=== PATIENT | female | born 2000 | race African-American/Black ===

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

== ENCOUNTER 2020-01-01 14:52 | Emergency (ER) | payer OTHER, SELFPAY ==
[2020-01-01 15:20] VITALS: BP 122/65; PULSE 95; RESP 16; TEMP 36.9; O2SAT 100
--- NOTE | 2020-01-01 15:38 | ED.ABDPAIN ---
HPI - Abdominal Pain General Chief Complaint: Abdominal Pain Stated Complaint: abd pain History of Present Illness HPI narrative: This is a 19 year old female that comes in complaining of nausea and frequency of urination and some loose stools per patient she has not had fever . Patient states she was on macrobid the last time she came for this. Patient states the same thing has been going on for the past couple of days. Last bowel movement was yesterday. Related Data Allergies Allergy/AdvReac Type Severity Reaction Status Date / Time No Known Allergies Allergy Verified 01/01/20 15:18 Review of Systems Review of Systems: Narrative: CONSTITUTIONAL: Denies fever, chills, or sweats. EYES: Denies visual changes, redness, or discharge. ENT: Denies rhinorrhea, congestion, sore throat, or otalgia. CARDIOVASCULAR:Denies chest pain, palpitations, or edema. RESPIRATORY: Denies cough or dyspnea. GASTROINTESTINAL: positive abdominal pain, nausea, vomiting, or diarrhea. GENITOURINARY: Denies dysuria or hematuria. SKIN:[Denies rash or itching. MUSCULOSKELETAL:Denies back pain, joint pain, or myalgia. NEUROLOGIC: Denies headache, numbness, or weakness. PSYCHIATRIC:Denies anxiety or depression PMFSH Past Medical History Medical History (Updated 01/01/20 @ 15:40 by Good Trujillo NP) Anxiety Depression Surgical History Surgical History (Updated 08/18/19 @ 09:06 by Millie Villalta CMA) History of tonsillectomy [place] teeth removed Family History Family History (Updated 04/19/17 @ 12:20 by DOCTOR UNKNOWN) Grandparent Family history of hypercholesterolemia Social History Social History Smoking status: Never smoker Second hand tobacco smoke exposure: No Alcohol intake: never Gender identity (if verbalized by the patient): Female Comments At time as signature, I have reviewed and agree with nursing past medical, social, surgical and family history. Please see nursing chart for further information. There is no relevant family history pertinent to the presenting complaint. Exam Narrative: Exam Narrative: GENERAL:Well-appearing, well-nourished, and in no acute distress. HEAD:Normocephalic, atraumatic. EYES: PERRLA and EOMI. ENT: Nares clear, no rhinorrhea or epistaxis. Mucous membranes moist. NECK: Supple. CHEST: Clear to auscultation. No respiratory distress. HEART: Regular rate and rhythm. No murmur heard. Normal peripheral pulses. ABDOMEN: Soft, right upper quad tender, nondistended, normal active bowel sounds. EXTREMITIES: Normal range of motion. No edema. SKIN: Warm, dry, no rash. NEURO: No focal deficits. Alert and oriented x3. Course Vital Signs Vital signs: Vital Signs Temperature 98.5 F 01/01/20 15:20 Pulse Rate 95 01/01/20 15:20 Respiratory Rate 16 01/01/20 15:20 Blood Pressure 122/65 01/01/20 15:20 Pulse Oximetry 100 01/01/20 15:20 Temperature 98.5 F 01/01/20 15:20 Pulse Rate 95 01/01/20 15:20 Respiratory Rate 16 01/01/20 15:20 Blood Pressure 122/65 01/01/20 15:20 Pulse Oximetry 100 01/01/20 15:20 MDM - Abdominal Pain Differential Diagnosis Differential diagnosis: Likely abdominal pain, acute appendicitis, calculus of kidney, constipation, diverticulitis, gastroenteritis and small bowel obstruction Lab Data Labs: UCG Bedside Result Negative Reference Range: Negative Urine Glucose Negative Reference Range: Negative Urine Bilirubin Negative Reference Range: Negative Urine Ketone Negative Reference Range: Negative Urine Specific [place] 1.010 Reference Range:1.001-1.035 Urine Blood Negative Reference Range: Negative * * Urine pH 7.0 Reference Range: 5.0-9.0 Urine Protein Negative Reference Range: Negati
== END 2020-01-01 15:47 | disposition home or self-care (01) ==
PROVIDERS: Emergency Provider Nurse Practitioner Family
DX: K52.9 Noninfective gastroenteritis and colitis, unspecified (principal)
CPT/HCPCS: 81003; 81025; 99213; G0463

== ENCOUNTER 2020-03-15 16:16 | Emergency (ER) | payer OTHER, SELFPAY ==
[2020-03-15 16:34] VITALS: BP 118/66; PULSE 85; RESP 16; TEMP 36.7; O2SAT 99
--- NOTE | 2020-03-15 17:00 | ED.ABDPAIN ---
HPI - Abdominal Pain General Chief Complaint: Abdominal Pain Stated Complaint: Abd pain/Nausea/ Vomiting Time Seen by Provider: 03/15/20 17:00 Source: patient and RN notes reviewed Mode of arrival: ambulatory Limitations: no limitations History of Present Illness HPI narrative: 19-year-old female presents with concern for 2 to 3-day history of diarrhea. Reports 3-5 diarrhea stools a day ranging from watery to soft. Reports nausea, denies vomiting. Reports past history of diarrhea alternating with constipation. She denies fever, malaise, flank pain, dysuria, urine frequency, urinary urgency. Has not taken any medications for her symptoms. Reports she has missed work today MD elicited complaint: other (Diarrhea) Related Data Allergies Allergy/AdvReac Type Severity Reaction Status Date / Time No Known Allergies Allergy Verified 01/01/20 15:18 Review of Systems Review of Systems: Narrative: CONSTITUTIONAL: Denies malaise, chills, sweats, or fever. ENT: Denies rhinorrhea, congestion, sinus pain, otalgia or sore throat. CARDIOVASCULAR: Denies chest pain, palpitations, or edema. RESPIRATORY: Denies cough or dyspnea. GASTROINTESTINAL: Reports abdominal pain, nausea, diarrhea. Denies vomiting, bloody, or mucous stools. GENITOURINARY: Denies dysuria, frequency, urgency, flank pain, hematuria, abnormal vaginal discharge. SKIN: Denies rash or itching. MUSCULOSKELETAL: Denies myalgia. NEUROLOGIC: Reports occasional headache. PSYCHIATRIC: Denies anxiety or depression. All systems reviewed & are unremarkable except as noted in HPI and below PMFSH Past Medical History Medical History (Updated 03/15/20 @ 17:10 by Rica Moncada NP) Anxiety Depression Surgical History Surgical History (Updated 08/18/19 @ 09:06 by Millie Villalta CMA) History of tonsillectomy [place] teeth removed Family History Family History (Updated 04/19/17 @ 12:20 by DOCTOR UNKNOWN) Grandparent Family history of hypercholesterolemia Social History Social History Smoking status: Never smoker Second hand tobacco smoke exposure: No Alcohol intake: never Gender identity (if verbalized by the patient): Female Comments At time of signature, agree with nursing past medical, surgical, social and family history. There is no relevant family history pertinent to the presenting complaint Exam Narrative: Exam Narrative: GENERAL: Well-appearing, well-nourished, and in no acute distress. HEAD: Normocephalic, atraumatic. EYES: PERRLA, conjunctivae clear, and EOMI. ENT: Nares clear, turbinates pink, no rhinorrhea or epistaxis. Mucous membranes moist. Oropharynx without edema, erythema, or lesions. Tonsils not enlarged and without exudate. NECK: Supple. No lymphadenopathy CHEST: Speaks in full sentences. No respiratory distress. HEART: Regular rate and rhythm. ABDOMEN: Soft, flat, nondistended. No guarding, rebound tenderness, or rigid. No pulsatilla masses. Bowel sounds present in all four quadrants. No organomegaly. Negative Renee?s sign. No periumbilical tenderness. No Supra public tenderness or distension. Good femoral pulses bilaterally. No hernia noted. No scars or surface trauma. SKIN: Warm, dry, no rash. NEURO: Alert and oriented x3. PSYCH: Normal mood and affect Course Course Emergency Course: Patient is aware of diagnosis, understands and agrees to treatment plan. Anticipatory guidance given. Patient agrees to follow-up as directed and is aware of reasons to seek care at the emergency department. Portions of this record may have been created with voice recognition software Vital Signs Vital signs: Vital Signs Temperature 98.1 F 03/15/20 16:34 Pulse Rate 85 03/15/20 16:34 Respiratory Rate 16 03/15/20 16:34 Blood Pressure 118/66 03/15/20 16:34 Pulse Oximetry 99 03/15/20 16:34 Temperature 98.1 F 03/15/20 16:34 Pulse Rate 85 03/15/20 16:34 Respiratory Rate 16 03/15/20 16:34 Blood Pressure 118/66
== END 2020-03-15 17:19 | disposition home or self-care (01) ==
PROVIDERS: Emergency Provider Nurse Practitioner
DX: R19.7 Diarrhea, unspecified (principal)
CPT/HCPCS: 99213; G0463

== ENCOUNTER 2020-05-22 10:56 | Emergency (ER) | payer OTHER, SELFPAY ==
--- NOTE | ~2020-05-22 | US_ITS ---
EXAMINATION: US OB <= 14 weeks fetus DATE: 05/22/2020 12:48 INDICATION: Pelvic pain during first trimester TECHNIQUE: Real-time pelvic transabdominal and transvaginal ultrasound was performed. COMPARISON: None. FINDINGS: The uterus measures 9.3 x 7.2 x 9.5 cm. There is an intrauterine gestational sac. A yolk s ac is identified. heart motion is identified measuring 151 beats per minute (bpm) by M-mode Dop pler. The crown rump length measures 4.5 cm , which correlates with an estimated gestational ag e of 11 weeks and 2 day(s) (+/-) 5 day(s). The right ovary measures 2.4 x 2.1 x 2.1 cm. The left ovary measures 2.0 x 1.4 x 2.1 cm. There is nor mal vascular flow in the ovaries. There is no free fluid in the pelvis. IMPRESSION: 1. Live intrauterine with an estimated gestational age of 11 weeks and 2 day(s) (+/-) 5 day (s) and an estimated delivery date of 12/09/2020. Reviewed, dictated and finalized at location A. IMPRESSION: 1. Live intrauterine with an estimated gestational age of 11 weeks an d 2 day(s) (+/-) 5 day(s) and an estimated delivery date of 12/09/2020.
[2020-05-22 11:10] VITALS: BP 140/71; PULSE 91; RESP 17; TEMP 36.6; O2SAT 100
--- NOTE | 2020-05-22 11:43 | ED.ABDPAIN ---
HPI - Abdominal Pain General Chief Complaint: Abdominal Pain Stated Complaint: 11 weeks /abdominal pain Time Seen by Provider: 05/22/20 11:43 Source: patient Mode of arrival: ambulatory Limitations: no limitations History of Present Illness HPI narrative: Patient is a G1, P0 who is approximately 11 weeks who presents for evaluation of right lower quadrant abdominal pain/upper pelvic pain over the past 72 hours. Patient reports pain is mild in nature, she states she initially attributed the right lower abdominal pain to picking up a heavy dog on . Patient states the pain seemed to have improved since that time but was very worried given this is her first . Patient states she did have a verified intrauterine by Dr. Salazar's office. 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 She denies fever, chills, nausea or vomiting. She denies hematuria or dysuria. She denies vaginal bleeding, discharge or loss of fluids. Related Data Allergies Allergy/AdvReac Type Severity Reaction Status Date / Time No Known Allergies Allergy Verified 05/22/20 11:12 Review of Systems Review of Systems: Narrative: CONSTITUTIONAL: Denies fever, chills ENT: Denies rhinorrhea, congestion, sore throat, or otalgia. CARDIOVASCULAR: Denies chest pain, palpitations, or edema. RESPIRATORY: Denies cough or dyspnea. GASTROINTESTINAL: Reports right lower quadrant abdominal pain, denies nausea, vomiting or diarrhea GENITOURINARY: Denies dysuria or hematuria. SKIN: Denies rash or itching. MUSCULOSKELETAL: Denies back pain, joint pain, or myalgia. NEUROLOGIC: Denies headache, numbness, or weakness. [facility] Past Medical History Medical History Anxiety Depression Surgical History Surgical History History of tonsillectomy [place] teeth removed Family History Family History (Updated 04/19/17 @ 12:20 by DOCTOR UNKNOWN) Grandparent Family history of hypercholesterolemia Social History Social History Smoking status: Never smoker Second hand tobacco smoke exposure: No Alcohol intake: never Gender identity (if verbalized by the patient): Female Exam Narrative: Exam Narrative: GENERAL: Awake, alert, conversant HEAD: Normocephalic, atraumatic. EYES: PERRLA and EOMI. ENT: Nares clear, no rhinorrhea or epistaxis. Mucous membranes moist. NECK: Supple. CHEST: No respiratory distress, breathing even and non labored HEART: Regular rate, sinus rhythm ABDOMEN:Non distended, focal right lower quadrant tenderness, nonrigid, no guarding EXTREMITIES: Normal range of motion. No edema. SKIN: Warm, dry, no rash. NEURO:No focal deficits. Alert and oriented x3 Course Vital Signs Vital signs: Vital Signs Temperature 36.6 C 05/22/20 11:10 Pulse Rate 91 05/22/20 11:10 Respiratory Rate 17 05/22/20 11:10 Blood Pressure 140/71 05/22/20 11:10 Pulse Oximetry 100 05/22/20 11:10 Temperature 36.6 C 05/22/20 11:10 Pulse Rate 91 05/22/20 11:10 Respiratory Rate 17 05/22/20 11:10 Blood Pressure 140/71 05/22/20 11:10 Pulse Oximetry 100 05/22/20 11:10 MDM - Abdominal Pain MDM Narrative Medical decision making narrative: Patient presented for evaluation of right lower quadrant abdominal pain in the setting of first trimester . Patient states that she was lifting a dog and then experienced some pain on that side which has lessened over time. Patient was worried because she still continues to have mild pain. No fever, nausea or vomiting. No sign of infectious etiology based on vital signs. Considered appendicitis based on location of the pain, but she lacks other clinical symptoms to be suggestive of this, furthermore I would think that her pain would be increasing over time if she were to have appendicitis. Laboratory results
[2020-05-22 12:26] LABS: Basophils Percent Auto 0.3 % (0.2-1.2); Eosinophils Absolute Auto 0.1 K/mm3 (0-0.3); Hemoglobin 14.8 g/dL (12.0-15.0); Immature Granulocyte Absolute 0.07 K/mm3 (0.00-0.031); Immature Granulocyte Percent A 0.6 % (0-0.5); Lymphocytes Absolute Auto 2.12 K/mm3 (0.9-3.2); Lymphocytes Percent Auto 18.5 % (18.3-44.2); Mean Corpuscular HGB Conc 35.2 g/dl (32-36); Mean Corpuscular Hemoglobin 30.8 pg (26-34); Mean Corpuscular Volume 87.5 fl (80-100); Mean Platelet Volume 11.4 fl (7.4-10.4); Monocytes Absolute Auto 0.5 K/mm3 (0.1-0.6); Monocytes Percent Auto 4.7 % (2.6-8.5); Neutrophils Absolute Auto 8.6 K/mm3 (1.3-6.7); Neutrophils Percent Auto 74.9 % (45.5-73.1); Platelet Count Result 179 k/mm3 (150-375); Red Cell Distribution Width 11.7 % (11.5-14.5); White Blood Count 11.4 K/mm3 (4.5-10.0)
[2020-05-22 12:28] LABS: Add Urine Microscopic? NO; Appearance Urine Clear (Clear); Bilirubin Urine Negative (Negative); Blood Urine Negative (Negative); Color Urine Yellow (Yellow); Glucose Urine UA Negative (Negative); Ketones Urine Negative (Negative); Leukocyte Esterase Ur Negative LEU/UL (Negative); Nitrate Urine Negative (Negative); Protein Urine Negative (Negative); Specific Grav Ur 1.014 (1.001-1.035); Urobilinogen Urine Negative mg/dL (<2.0)
[2020-05-22 12:38] LABS: Alanine Aminotransferase 9 U/L (4-35); Albumin Level 3.9 g/dL (3.5-5.1); Alkaline Phosphatase 53 U/L (38-126); Anion Gap 8 mmol/L (8-16); Aspartate Amino Transferase 19 U/L (14-36); Bilirubin,Total 1.2 mg/dL (0.2-1.3); Blood Urea Nitrogen 4 mg/dL (7-17); Carbon Dioxide 22 mmol/L (22-30); Chloride 103 mmol/L (98-107); Estimated CRCL calculation 137 ml/min; Estimated Glomerular Filt Rate > 60; Glucose 71 mg/dL (65-105); Lipase 33 U/L (23-300); Potassium 4.2 mmol/L (3.4-5.0); Sodium 133 mmol/L (137-145)
[2020-05-22] MEDS: SODIUM CHLORIDE 0.9% IV 1,000 ML 999 ML IV CONT (13:00)
[2020-05-22 14:05] VITALS: BP 121/75; PULSE 85; RESP 18; O2SAT 100
== END 2020-05-22 14:06 | disposition home or self-care (01) ==
PROVIDERS: Emergency Provider Emergency Medicine
DX: O26.891 Other specified pregnancy related conditions, first trimester (principal); R10.31 Right lower quadrant pain; Z3A.11 11 weeks gestation of pregnancy
CPT/HCPCS: 36415; 76801; 80053; 81003; 83690; 85025; 96365; 99284; J0131; J7030

== ENCOUNTER 2020-07-13 10:49 | Emergency (ER) | payer OTHER, SELFPAY ==
[2020-07-13 10:59] VITALS: BP 109/66; PULSE 81; RESP 18; TEMP 37; O2SAT 100
--- NOTE | 2020-07-13 11:11 | ED.FEMALEGU ---
HPI - Female Genitourinary General Chief complaint: Urogenital-Female Stated complaint: possible uti Source: patient Mode of arrival: ambulatory Limitations: no limitations History of Present Illness HPI Narrative: Patient is a 20-year-old female who presents complaining of urinary frequency and dysuria x2 days. Patient is 19 weeks gestation, with an estimated due date of 12/07/2019 per patient. She reports confirmed intrauterine by Dr. Salazar's office, OBGYN. She denies fever, chills, nausea or vomiting. She denies hematuria, vaginal bleeding, discharge or loss of fluids. Related Data Home Medications Medication Instructions Recorded Confirmed No Home Medications 07/13/20 07/13/20 Allergies Allergy/AdvReac Type Severity Reaction Status Date / Time No Known Allergies Allergy Verified 07/13/20 11:07 Review of Systems Review of Systems: Narrative: CONSTITUTIONAL: Denies fever, chills, or sweats. EYES: Denies visual changes, redness, or discharge. ENT: Denies rhinorrhea, congestion, sore throat, or otalgia. CARDIOVASCULAR: Denies chest pain, palpitations, or edema. RESPIRATORY: Denies cough or dyspnea. GASTROINTESTINAL: Denies abdominal pain, nausea, vomiting, or diarrhea. GENITOURINARY: Denies dysuria or hematuria. Reports urinary frequency and dysuria. SKIN: Denies rash or itching. MUSCULOSKELETAL: Denies back pain, joint pain, or myalgia. NEUROLOGIC: Denies headache, numbness, dizziness, or weakness. PSYCHIATRIC: Denies anxiety or depression. PMFSH Past Medical History Medical History (Updated 07/13/20 @ 11:31 by MELISSA Parish) Anxiety Depression Surgical History Surgical History History of tonsillectomy [place] teeth removed Family History Family History Grandparent Family history of hypercholesterolemia Social History Social History Smoking status: Never smoker Second hand tobacco smoke exposure: No Alcohol intake: never Gender identity (if verbalized by the patient): Female Exam Narrative: Exam Narrative: GENERAL: Well-appearing, well-nourished, and in no acute distress. HEAD: Normocephalic, atraumatic. EYES: No redness or drainage. ENT: Mucous membranes pink and moist. CHEST: No respiratory distress. HEART: Regular rate and rhythm. GI: Nontender without rebound, or guarding. Bowel sounds normal in all quadrants. : heart tones in 160's EXTREMITIES: Normal range of motion. SKIN: Warm, dry, no rash. NEURO: No focal deficits. Alert and oriented x3. Gait steady. PSYCH: Normal affect. No signs of depression or anxiety. Course Vital Signs Vital signs: Vital Signs Temperature 37.0 C 07/13/20 10:59 Pulse Rate 81 07/13/20 10:59 Respiratory Rate 18 07/13/20 10:59 Blood Pressure 109/66 07/13/20 10:59 Pulse Oximetry 100 07/13/20 10:59 Temperature 37.0 C 07/13/20 10:59 Pulse Rate 81 07/13/20 10:59 Respiratory Rate 18 07/13/20 10:59 Blood Pressure 109/66 07/13/20 10:59 Pulse Oximetry 100 07/13/20 10:59 Reviewed MDM - Female Genitourinary MDM Narrative Medical decision making narrative: Patient urine analysis shows no signs of urinary tract infection. Discussed with patient the need for further evaluation in the emergency department, patient declined. Patient reports she will follow-up with her ACQUISITION LEAD today for further instructions. Patient denies vaginal bleeding, discharge or loss of fluids. heart tones in the 160s. Patient aware of recommendation for emergency follow-up and evaluation. Patient is stable for discharge at this time. Differential Diagnosis Differential diagnosis: Likely other (, urinary tract infection) Lab Data Labs: Urine Glucose Negative Reference
--- NOTE | 2020-07-13 11:18 | PC.NURSE ---
FHR 162; Provider notified
== END 2020-07-13 11:35 | disposition home or self-care (01) ==
PROVIDERS: Emergency Provider Nurse Practitioner
DX: O36.8320 Maternal care for abnormalities of the fetal heart rate or rhythm, second trimester, not applicable or unspecified (principal); Z3A.19 19 weeks gestation of pregnancy
CPT/HCPCS: 81003; 99213; G0463

== ENCOUNTER 2020-11-16 16:20 | Outpatient (CLI) | payer OTHER, SELFPAY ==
[2020-11-16 16:46] VITALS: BP 138/88; PULSE 81
[2020-11-16 16:49] LABS: Basophils Percent Auto 0.2 % (0.2-1.2); Eosinophils Absolute Auto 0.1 K/mm3 (0-0.3); Eosinophils Percent Auto 0.6 % (0-4.4); Hematocrit 40.1 % (37.0-47.0); Hemoglobin 13.5 g/dL (12.0-15.0); Immature Granulocyte Absolute 0.05 K/mm3 (0.00-0.031); Immature Granulocyte Percent A 0.5 % (0-0.5); Lymphocytes Absolute Auto 2.67 K/mm3 (0.9-3.2); Lymphocytes Percent Auto 24.8 % (18.3-44.2); Mean Corpuscular HGB Conc 33.7 g/dl (32-36); Mean Corpuscular Hemoglobin 29.7 pg (26-34); Mean Corpuscular Volume 88.3 fl (80-100); Mean Platelet Volume 12.8 fl (7.4-10.4); Monocytes Absolute Auto 0.8 K/mm3 (0.1-0.6); Neutrophils Absolute Auto 7.2 K/mm3 (1.3-6.7); Neutrophils Percent Auto 66.9 % (45.5-73.1); Platelet Count Result 150 k/mm3 (150-375); Red Blood Count 4.54 M/mm3 (4.2-5.4); White Blood Count 10.8 K/mm3 (4.5-10.0)
[2020-11-16 16:54] LABS: Add Urine Microscopic? YES; Amorphous Sediment Urine Few; Appearance Urine Cloudy (Clear); Bacteria Urine Trace /hpf; Bilirubin Urine Negative (Negative); Blood Urine Negative (Negative); Color Urine Yellow (Yellow); Glucose Urine UA Negative (Negative); Ketones Urine Negative (Negative); Leukocyte Esterase Ur 1+ LEU/UL (NEGATIVE); Mucus Urine Rare /lpf; Nitrate Urine Negative (Negative); Protein Urine Negative (Negative); RBC Urine 0-2 /hpf (0-2); Specific Grav Ur 1.009 (1.001-1.035); Squamous Epithelial Cell Urine Many /hpf (Few); Urobilinogen Urine Negative mg/dL (<2.0)
[2020-11-16 17:00] LABS: Alanine Aminotransferase 12 U/L (4-35); Albumin Level 3.4 g/dL (3.5-5.1); Alkaline Phosphatase 246 U/L (38-126); Anion Gap 7 mmol/L (8-16); Aspartate Amino Transferase 25 U/L (14-36); Bilirubin,Total 0.9 mg/dL (0.2-1.3); Blood Urea Nitrogen 5 mg/dL (7-17); Calcium 8.4 mg/dL (8.4-10.2); Carbon Dioxide 19 mmol/L (22-30); Chloride 111 mmol/L (98-107); Estimated Glomerular Filt Rate > 60; Glucose 66 mg/dL (65-105); Potassium 3.7 mmol/L (3.4-5.0); Sodium 137 mmol/L (137-145); Uric Acid 5.8 mg/dL (2.5-7.5)
[2020-11-16 17:01] VITALS: BP 135/83; PULSE 91
[2020-11-16 17:04] LABS: Creatinine Urine 49.5 mg/dL; Total Protein Urine Random 19 mg/dL; Ur Ttl Prot Creatinine Ratio 0.38 mg/mg (0-0.20)
[2020-11-16 17:16] VITALS: BP 121/63; PULSE 88
[2020-11-16 17:31] VITALS: BP 121/69; PULSE 88
--- NOTE | 2020-11-16 17:42 | PC.NURSE ---
1731- Spoke with Mike Gutierrez CNM, labs and BPs reviewed. Orders to discharge to home with 24 dodie urine and follow up in the office on Saturday.
== END 2020-11-16 17:42 | disposition home or self-care (01) ==
LOC: ANHOBOP 16:24 → ANHOBPP 16:44
PROVIDERS: Advanced Practice Midwife; Visit Provider Obstetrics & Gynecology
DX: O13.9 Gestational [pregnancy-induced] hypertension without significant proteinuria, unspecified trimester (principal); Z3A.00 Weeks of gestation of pregnancy not specified
CPT/HCPCS: 36415; 59025; 80053; 81001; 82570; 84156; 84550; 85025; 87086; 99199

== ENCOUNTER 2020-11-17 19:40 | Outpatient (NON) | payer OTHER, SELFPAY ==
[2020-11-17 19:51] VITALS: BMI 29.5
[2020-11-17 20:05] LABS: Collection Time Urine 24 HOURS
[2020-11-17 20:12] LABS: Total Volume 24 Hour Urine 3400 ml
[2020-11-17 20:26] LABS: Specific Gravity Ur 1.015
[2020-11-17 20:30] LABS: Patient Weight 156 Lbs
[2020-11-17 20:39] LABS: Creatinine Clearance Urine 164.4 ml/min (75-125); Creatinine Urine 40.9 mg/dL; Total Protein Urine 24 Hr 476 MG/DAY (28-141); Total Protein Urine Random 14 mg/dL
== END 2020-11-17 19:41 ==
PROVIDERS: Advanced Practice Midwife; Visit Provider Obstetrics & Gynecology
DX: O13.9 Gestational [pregnancy-induced] hypertension without significant proteinuria, unspecified trimester (principal); Z3A.00 Weeks of gestation of pregnancy not specified
CPT/HCPCS: 81050; 82575; 84156

== ENCOUNTER 2020-11-18 17:40 | Inpatient (IN) | payer OTHER, SELFPAY ==
[2020-11-18] VITALS (7 sets, daily range): BP systolic 115–150; BP diastolic 63–92; PULSE 89–101; TEMP 37–37.2; BMI 27.7
[2020-11-18 18:16] LABS: Basophils Percent Auto 0.1 % (0.2-1.2); Eosinophils Percent Auto 0.4 % (0-4.4); Hematocrit 41.8 % (37.0-47.0); Hemoglobin 14.3 g/dL (12.0-15.0); Immature Granulocyte Absolute 0.05 K/mm3 (0.00-0.031); Immature Granulocyte Percent A 0.5 % (0-0.5); Lymphocytes Absolute Auto 2.17 K/mm3 (0.9-3.2); Lymphocytes Percent Auto 21.1 % (18.3-44.2); Mean Corpuscular HGB Conc 34.2 g/dl (32-36); Mean Corpuscular Volume 87.6 fl (80-100); Mean Platelet Volume 12.6 fl (7.4-10.4); Monocytes Absolute Auto 0.4 K/mm3 (0.1-0.6); Monocytes Percent Auto 3.5 % (2.6-8.5); Neutrophils Absolute Auto 7.7 K/mm3 (1.3-6.7); Neutrophils Percent Auto 74.4 % (45.5-73.1); Platelet Count Result 167 k/mm3 (150-375); Red Blood Count 4.77 M/mm3 (4.2-5.4); Red Cell Distribution Width 13.8 % (11.5-14.5); White Blood Count 10.3 K/mm3 (4.5-10.0)
[2020-11-18 18:27] LABS: Alanine Aminotransferase 14 U/L (4-35); Albumin Level 3.5 g/dL (3.5-5.1); Alkaline Phosphatase 255 U/L (38-126); Anion Gap 8 mmol/L (8-16); Aspartate Amino Transferase 24 U/L (14-36); Blood Urea Nitrogen 4 mg/dL (7-17); Calcium 8.7 mg/dL (8.4-10.2); Carbon Dioxide 20 mmol/L (22-30); Chloride 109 mmol/L (98-107); Estimated Glomerular Filt Rate > 60; Glucose 118 mg/dL (65-105); Potassium 3.7 mmol/L (3.4-5.0); Sodium 137 mmol/L (137-145); Uric Acid 5.1 mg/dL (2.5-7.5)
[2020-11-18] MEDS: DINOPROSTONE 10 MG VAG INSERT VAGINAL (18:51)
--- NOTE | 2020-11-18 20:02 | WPDOBADMIT ---
Obstetrics - Admit Note Admission Note: record reviewed. No pertinent additions to the history and/or any subsequent changes in the physical findings that are not consistent with the expected course of the were found. Pt admitted for MIL due to mild preeclampsia, SVE , cervadil placed by Trevor MARIE Additions to the history and/or subsequent changes in the physical findings follow. None.
[2020-11-19] VITALS (210 sets, daily range): BP systolic 87–154; BP diastolic 42–132; PULSE 79–146; TEMP 36.8–37.7; O2SAT 97–100
[2020-11-19] MEDS: LACTATED RINGERS 1,000 ML 125 ML IV CONT ×4 (08:34→20:48)
[2020-11-19] MEDS: OXYTOCIN 30 UNITS/NS 500 ML 30 UNITS/500 ML BAG 6 UNITS IV CONT (08:34)
--- NOTE | 2020-11-19 09:42 | PM.OBPNLAB ---
Pain Control Date/time seen: 11/19/20 09:42 VSS Pt feeling contractions Contractions regular FHR category 1 Cervix 1-2/50/-2 AROM small amount of clear odorless fluid
--- NOTE | 2020-11-19 13:39 | WPDANESEPP ---
Anes - Eval Pre Procedure Procedure: Labor Epidural Date/Time: 11/19/20 13:39 Surgeon: Marie Preop Diagnosis: Labor Pain Pre Op Diagnosis: Induction of Labor Patient Data Age: 20 Gender: F Height: 5 ft 3 in Weight: 71 kg Last Vital Signs Temp 37.1 C 11/19/20 13:27 Pulse 113 H 11/19/20 13:38 BP 117/63 11/19/20 13:38 Pulse Ox 97 11/19/20 13:34 Allergies Allergy/AdvReac Type Severity Reaction Status Date / Time No Known Allergies Allergy Verified 07/13/20 11:07 Home Medications Medication Instructions Recorded Confirmed Type PNV cmb#95-ferrous fumarate-FA 1 tablet PO DAILY 11/07/20 11/16/20 History [] Laboratory Tests 11/18/20 11/18/20 11/18/20 18:03 18:03 18:03 WBC 10.3 K/mm3 H K/mm3 (4.5-10.0) RBC 4.77 M/mm3 M/mm3 (4.2-5.4) Hgb 14.3 g/dL g/dL (12.0-15.0) Hct 41.8 % % (37.0-47.0) MCV 87.6 fl fl (80-100) MCH 30.0 pg pg (26-34) MCHC 34.2 g/dl g/dl (32-36) RDW 13.8 % % (11.5-14.5) Plt Count 167 k/mm3 k/mm3 (150-375) MPV 12.6 fl H fl (7.4-10.4) Immature Gran % (Auto) 0.5 % % (0-0.5) Neut % (Auto) 74.4 % H % (45.5-73.1) Lymph % (Auto) 21.1 % % (18.3-44.2) [place] % (Auto) 3.5 % % (2.6-8.5) Eos % (Auto) 0.4 % % (0-4.4) Baso % (Auto) 0.1 % L % (0.2-1.2) Lymph # (Auto) 2.17 K/mm3 K/mm3 (0.9-3.2) [place] # (Auto) 0.4 K/mm3 K/mm3 (0.1-0.6) Eos # (Auto) 0.0 K/mm3 K/mm3 (0-0.3) Baso # (Auto) 0.0 K/mm3 K/mm3 (0.0-0.1) Abs Immat Gran (auto) 0.05 K/mm3 H K/mm3 (0.00-0.031) Absolute Neuts (auto) 7.7 K/mm3 H K/mm3 (1.3-6.7) Absolute Nucleated RBC 0.0 K/mm3 K/mm3 (0.0-0.012) Nucleated RBC % 0.0 % % (0.0-0.2) Sodium Potassium Chloride Carbon Dioxide Anion Gap BUN Creatinine Estim Creat Clear Calc Estimated GFR Glucose Uric Acid Cancelled Calcium Total Bilirubin AST ALT Alkaline Phosphatase Total Protein Albumin RPR Pending Blood Type Antibody Screen 11/18/20 11/18/20 18:03 18:03 WBC RBC Hgb Hct MCV MCH MCHC RDW Plt Count MPV Immature Gran % (Auto) Neut % (Auto) Lymph % (Auto) [place] % (Auto) Eos % (Auto) Baso % (Auto) Lymph # (Auto) [place] # (Auto) Eos # (Auto) Baso # (Auto) Abs Immat Gran (auto) Absolute Neuts (auto) Absolute Nucleated RBC Nucleated RBC % Sodium 137 mmol/L mmol/L (137-145) Potassium 3.7 mmol/L mmol/L (3.4-5.0) Chloride 109 mmol/L H mmol/L (98-107) Carbon Dioxide 20 mmol/L L mmol/L (22-30) Anion Gap 8 mmol/L mmol/L (8-16) BUN 4 mg/dL L mg/dL (7-17) Creatinine 0.60 mg/dL L mg/dL (0.7-1.0) Estim Creat Clear Calc Not Reportable Estimated GFR > 60 (59 - ) Glucose 118 mg/dL H mg/dL (65-105) Uric Acid 5.1 mg/dL mg/dL (2.5-7.5) Calcium 8.7 mg/dL mg/dL (8.4-10.2) Total Bilirubin 1.0 mg/dL mg/dL (0.2-1.3) AST 24 U/L U/L (14-36) ALT 14 U/L U/L (4-35) Alkaline Phosphatase 255 U/L H U/L (38-126) Total Protein 7.0 g/dL g/dL (6.3-8.2) Albumin 3.5 g/dL g/dL (3.5-5.1) RPR Blood Type A Positive Antibody Screen Negative : gestational age (SANDRA 12/05/20, ) Patient hx anesthesia problems: none Family hx anesthesia problems: none PMFSH
[2020-11-19] MEDS: SODIUM CHLORIDE 0.9% IV 300 ML 600 ML I-UTERINE (20:48)
[2020-11-20] VITALS (116 sets, daily range): BP systolic 97–142; BP diastolic 40–93; PULSE 86–165; RESP 16–22; TEMP 36.7–37.8; O2SAT 94–100
[2020-11-20] MEDS: AMPICILLIN 2 GM/NS 100 ML 2 GM/100 ML BAG IVPB (04:15)
[2020-11-20] MEDS: SODIUM CHLORIDE 0.9% IV 300 ML 600 ML I-UTERINE (04:20)
--- NOTE | 2020-11-20 05:27 | PM.IMHP ---
H&P: HPI History of Present Illness Date/Time: 11/20/20 05:27 Chief Complaint: Induction of labor Narrative: Maggie Martinez is a 20 year old female here for induction of labor for mild pre-eclampsia. Review of Systems Review of Systems: All systems reviewed & are unremarkable except as noted in HPI and below PMFSH Past Medical History Medical History Anxiety Depression Surgical History Surgical History History of tonsillectomy [place] teeth removed Family History Family History Grandparent Family history of hypercholesterolemia Social History Social History Smoking status: Never smoker Second hand tobacco smoke exposure: No Alcohol intake: never Substance use: never Gender identity (if verbalized by the patient): Female Sexual Orientation (if Verbalized by the Patient): Straight or Heterosexual Spiritual care concerns: No Meds Home Medications and Allergies Home Medications Medication Instructions Recorded Confirmed Type PNV cmb#95-ferrous fumarate-FA 1 tablet PO DAILY 11/07/20 11/16/20 History [] Allergies Allergy/AdvReac Type Severity Reaction Status Date / Time No Known Allergies Allergy Verified 07/13/20 11:07 Vital Signs Vital Signs - 24 hr 11/19/20 06:00 11/19/20 06:18 11/19/20 07:04 Temperature 98.4 F 98.9 F Pulse Rate 89 Blood Pressure 122/77 Pulse Oximetry 11/19/20 08:30 11/19/20 09:00 11/19/20 09:30 Temperature 98.6 F Pulse Rate 95 92 Blood Pressure 130/81 124/71 Pulse Oximetry 11/19/20 09:31 11/19/20 10:00 11/19/20 10:30 Temperature Pulse Rate 135 H 96 83 Blood Pressure 153/104 H 140/84 150/105 H Pulse Oximetry 11/19/20 11:00 11/19/20 11:15 11/19/20 11:30 Temperature 98.2 F Pulse Rate 103 H 99 Blood Pressure 137/88 134/83 Pulse Oximetry 11/19/20 11:45 11/19/20 12:02 11/19/20 12:15 Temperature Pulse Rate 96 98 90 Blood Pressure 138/79 146/98 H 134/77 Pulse Oximetry 11/19/20 12:30 11/19/20 12:45 11/19/20 13:01 Temperature Pulse Rate 94 92 101 H Blood Pressure 133/77 120/71 149/76 H Pulse Oximetry 11/19/20 13:14 11/19/20 13:19 11/19/20 13:22 Temperature Pulse Rate 104 H Blood Pressure 147/87 H Pulse Oximetry 100 100 11/19/20 13:24 11/19/20 13:26 11/19/20 13:27 Temperature 98.8 F Pulse Rate 109 H 110 H Blood Pressure 149/85 H 154/90 H Pulse Oximetry 100 11/19/20 13:28 11/19/20 13:29 11/19/20 13:30 Temperature Pulse Rate 111 H 117 H Blood Pressure 134/87 138/83 Pulse Oximetry 100 11/19/20 13:32 11/19/20 13:34 11/19/20 13:36 Temperature Pulse Rate 119 H 115 H 134 H Blood Pressure 138/81 110/68 87/42 L Pulse Oximetry 97 11/19/20 13:38 11/19/20 13:39 11/19/20 13:40 Temperature Pulse Rate 113 H 101 H Blood Pressure 117/63 122/61 Pulse Oximetry 100 11/19/20 13:42 11/19/20 13:44 11/19/20 13:46 Temperature Pulse Rate 105 H 99 99 Blood Pressure 123/71 125/72 123/71 Pulse Oximetry 99 11/19/20 13:48 11/19/20 13:49 11/19/20 13:50 Temperature Pulse Rate 104 H 104 H Blood Pressure 125/71 124/71 Pulse Oximetry 99 11/19/20 13:52 11/19/20 13:54 11/19/20 13:59 Temperature Pulse Rate 117 H Blood Pressure 127/75 Pulse Oximetry 100 100 11/19/20 14:00 11/19/20 14:04 11/19/20 14:09 Temperature Pulse Rate 94 Blood Pressure 120/67 Pulse Oximetry 100 100 11/19/20 14:14 11/19/20 14:15 11/19/20 14:19 Temperature Pulse Rate 98 Blood Pressure 123/66 Pulse Oximetry 100 100 11/19/20 14:24 11/19/20 14:29 11/19/20 14:30 Temperature Pulse Rate 100 Blood Pressure 124/71 Pulse Oximetry 100 100 11/19/20 14:34 11/19/20 14:39 11/19/20
[2020-11-20] MEDS: LACTATED RINGERS 1,000 ML 125 ML IV CONT (05:28)
--- NOTE | 2020-11-20 05:31 | WPDHPUPDATE1 ---
History and Physical Update Update Date/Time: 11/20/20 05:31 Failure to progress Inadequate labor NRFHT History and Physical has been reviewed, including an updated exam of the patient. There are NO changes in the patient's condition. Risks, benefits, and alternatives have been discussed and questions answered. Patient agrees to proceed with procedure.
--- NOTE | 2020-11-20 05:32 | PM.OBPNLAB ---
Pain Control Date/time seen: 11/20/20 05:32 Pt comfortable with epidural VSS but is becoming tachycardic Contractions regular but very spaced out. Unable to keep pitocin on. FHR has had periods of decreased variability off and on with occasional decelerations throughout the evening/night but would become reactive. More recently the strip is not reactive with minimal to absent variablity and has not responded to intervention. No decelerations at this time. Notified Dr Salazar. called d/t failure to progres r/t inadequate labor and NRFHT.
--- NOTE | 2020-11-20 05:42 | WPDANESEPPF ---
Anes - Initial Pre Proc Eval Procedure: Operation Date: 11/20/20 05:30 Proposed Procedures p Section - Taylor Salazar MD Date/Time: 11/20/20 05:42 Surgeon: Taylor Salazar MD Pre Op Diagnosis: Induction of Labor Patient Data Age: 20 Gender: F Height: 1.6 m Weight: 71 kg Last Vital Signs Temp 37.3 C 11/20/20 04:25 Pulse 146 H 11/20/20 05:30 BP 136/89 11/20/20 05:30 Pulse Ox 100 11/20/20 05:38 Allergies Allergy/AdvReac Type Severity Reaction Status Date / Time No Known Allergies Allergy Verified 07/13/20 11:07 Home Medications Medication Instructions Recorded Confirmed Type PNV cmb#95-ferrous fumarate-FA 1 tablet PO DAILY 11/07/20 11/16/20 History [] : gestational age (SANDRA 12/05/20, ) Patient hx anesthesia problems: none Family hx anesthesia problems: none PMFSH Past Medical History Medical History Anxiety Depression Surgical History Surgical History History of tonsillectomy [place] teeth removed Family History Family History Grandparent Family history of hypercholesterolemia Social History Social History Smoking status: Never smoker Second hand tobacco smoke exposure: No Alcohol intake: never Substance use: never Gender identity (if verbalized by the patient): Female Sexual Orientation (if Verbalized by the Patient): Straight or Heterosexual Spiritual care concerns: No Anes - Eval Final PreProcedure Day of Procedure 11/20/20 05:42 Heart: regular rate and rhythm Lungs: clear to auscultation and normal air movement Airway: Mallampati scale class 1 Neurological: alert and oriented Last oral intake: >/= 8 hours ASA classification: II Emergent: yes Anesthetic plan: proceed Anesthesia type and monitoring: regional and standard monitoring Informed Consent: The patient's anesthetic plan and its attendant risks and benefits were discussed with the patient/family/POA. Questions were solicited and answers provided to the satisfaction of the patient/family/POA.
[2020-11-20] MEDS: ceFAZolin 2 GM/D5W 50 ML 2 GM/50 ML BAG IVPB (05:56)
--- NOTE | 2020-11-20 06:47 | P.OP_ITS ---
Procedure Note - Detailed Date of procedure: 11/20/20 Pre-op diagnosis: Induction of Labor failure to progress and nonreassuring status Post-op diagnosis: same Procedure performed: low-transverse delivery Description of procedure: The patient was taken the operating room. She was prepped and draped in the dorsal supine position with leftward tilt after induction of spinal anesthetic. When anesthesia was found to be adequate a low- transverse skin incision was made and carried down to the level the fascia with the knife. The fascial incision was made at the midline with a scalpel. The fascial incision was extended laterally with Hudson scissors. The fascia was tented upward superior and inferior with Ekta clamps. The rectus muscles were dissected off bluntly. The rectus muscles at the midline. The preperitoneal fat was dissected bluntly at the superior aspect of the separate the rectus muscles. The peritoneal cavity was entered bluntly in the same area. The peritoneal incision was extended superior and inferior with good visualization of bladder. Bladder blade was inserted. A low-transverse incision was made on the uterus with the scalpel. It was carried down the level of the amniotic cavity with a knife. The amniotic cavity bluntly. The uterine incision was made laterally with blunt traction. The infant was delivered. The cord was clamped and cut. The infant was handed off to waiting pediatric staff. Cord bloods were obtained. The placenta was removed manually. The uterus was exteriorized. Uterus cleared of all clots and debris. Uterus closed in 0 Vicryl in a running locked fashion. An imbricating layer of 0 Vicryl was also placed on the to bolster the closure. The uterus was returned to the abdomen. The gutters were cleared of all clots and debris. The fascia was closed 0 Vicryl in a running fashion. Subcutaneous tissue was irrigated and bleeding areas were cauterized. The skin was closed with subcuticular absorbable aleja. The incision was covered with derma fountain. The patient tolerated the procedure well. She was taken recovery room stable condition. Sponge, lap, needle counts were correct x2. Anesthesia: spinal Surgeon: Taylor Salazar MD Drains: No Packing: No Pathology: none sent Complications: No immediate complications Condition: stable Disposition: floor Findings: Normal maternal anatomy. Average size with normal Apgars.
[2020-11-20] MEDS: KETOROLAC 30 MG/ML VIAL (*BKC) IV PUSH ×2 (07:50→14:42)
--- NOTE | 2020-11-20 08:59 | PC.NURSE ---
PT arrived on unit via stretcher accompanied by significant other and and taken to room 282. PT transferred to bed via maxi air without difficulty. PT oriented to room 282 and surrounding area. PT introductions made and plan of care discussed per post op c section, pain management, bottle feeding, daily care activities. PT received instructions per protocol on a one to one discussion. Fob also a recipient of such instructions and there were no barriers to learning. Welcome packet reviewed and discussed. PT verbalized understanding of such care.
[2020-11-20 09:05] LABS: Rapid Plasma Reagin Non-Reactive (NonReactive)
[2020-11-20] MEDS: SIMETHICONE 80 MG TAB.CHEW PO (14:42)
[2020-11-20] MEDS: DEXTROSE 5%/0.45% SOD CHL 1,000 ML 125 ML IV CONT (14:43)
[2020-11-20] MEDS: HYDROcodone/acetaminophen (*CRX) 5-325 MG TABLET 1 TAB PO ×2 (14:50→21:06)
[2020-11-20] MEDS: IBUPROFEN 600 MG TABLET PO (21:07)
[2020-11-21] VITALS (9 sets, daily range): BP systolic 112–135; BP diastolic 66–88; PULSE 84–96; RESP 18; TEMP 36.6–36.9; O2SAT 98–100
[2020-11-21] MEDS: HYDROcodone/acetaminophen (*CRX) 5-325 MG TABLET 1 TAB PO ×4 (02:11→23:07)
[2020-11-21] MEDS: IBUPROFEN 600 MG TABLET PO ×4 (02:14→23:11)
[2020-11-21 06:56] LABS: Basophils Percent Auto 0.1 % (0.2-1.2); Eosinophils Absolute Auto 0.1 K/mm3 (0-0.3); Eosinophils Percent Auto 0.5 % (0-4.4); Hematocrit 34.8 % (37.0-47.0); Hemoglobin 11.8 g/dL (12.0-15.0); Immature Granulocyte Absolute 0.08 K/mm3 (0.00-0.031); Immature Granulocyte Percent A 0.5 % (0-0.5); Lymphocytes Absolute Auto 1.96 K/mm3 (0.9-3.2); Lymphocytes Percent Auto 13.3 % (18.3-44.2); Mean Corpuscular HGB Conc 33.9 g/dl (32-36); Mean Corpuscular Hemoglobin 30.4 pg (26-34); Mean Corpuscular Volume 89.7 fl (80-100); Mean Platelet Volume 12.4 fl (7.4-10.4); Monocytes Absolute Auto 0.9 K/mm3 (0.1-0.6); Monocytes Percent Auto 6.1 % (2.6-8.5); Neutrophils Absolute Auto 11.7 K/mm3 (1.3-6.7); Neutrophils Percent Auto 79.5 % (45.5-73.1); Platelet Count Result 121 k/mm3 (150-375); Red Blood Count 3.88 M/mm3 (4.2-5.4); Red Cell Distribution Width 14.1 % (11.5-14.5); White Blood Count 14.8 K/mm3 (4.5-10.0)
--- NOTE | 2020-11-21 08:09 | PM.OBPNVD ---
OB - PN: Subj Subjective Date/time seen: 11/21/20 08:09 Patient comments: no complaints, pain well controlled, tolerating diet and flatus present OB - PN: Obj Data Labs CBC & Chem 7: 11/21/20 05:36 11/18/20 18:03 Labs: Laboratory Results - last 24 hr 11/18/20 11/21/20 18:03 05:36 WBC 14.8 H RBC 3.88 L Hgb 11.8 L Hct 34.8 L MCV 89.7 MCH 30.4 MCHC 33.9 RDW 14.1 Plt Count 121 L MPV 12.4 H Immature Gran % (Auto) 0.5 Neut % (Auto) 79.5 H Lymph % (Auto) 13.3 L Crockett % (Auto) 6.1 Eos % (Auto) 0.5 Baso % (Auto) 0.1 L Lymph # (Auto) 1.96 Crockett # (Auto) 0.9 H Eos # (Auto) 0.1 Baso # (Auto) 0.0 Abs Immat Gran (auto) 0.08 H Absolute Neuts (auto) 11.7 H Absolute Nucleated RBC 0.0 Nucleated RBC % 0.0 RPR Non-reactive OB - PN A/P Plan day: 1 Comments: Post Op LTCS - no problems, routine recovery Time Spent With Patient Time: Total time spent is greater than 50% in coordination of care (as documented) at patient's floor/unit and/or counseling patient: Exam Const: General: cooperative, healthy appearing, comfortable and no acute distress Resp: Auscultation: no crackles, no rales, no rhonchi and no wheezes Cardio: Rhythm: regular rhythm Heart sounds: no click and no murmurs GI: Inspection: non-distended Auscultation: normal bowel sounds Extrem: General: normal to inspection, no pedal edema and no calf tenderness
[2020-11-21] MEDS: DOCUSATE SODIUM 100 MG CAPSULE PO ×2 (08:26→16:10)
--- NOTE | 2020-11-21 10:52 | WPDANLDPN2 ---
Anes-Prog Note L&D Date/Time: 11/21/20 10:52 Comfortable throughout: labor and section Neuraxial method: epidural Epidural/Spinal procedure site: clean & non-tender Neuro status: Neuro function grossly intact. Cardiovascular status: normal Respiratory status: normal Airway patency: baseline Mental status: baseline Post-Op hydration status: normal Vital Signs: Last Vital Signs Temp 36.6 C 11/21/20 03:32 Pulse 86 11/21/20 03:32 Resp 18 11/21/20 03:32 BP 118/66 11/21/20 03:32 Pulse Ox 99 11/21/20 03:32 Pain score (VAS): 4 I/O: Intake & Output 11/20/20 11/21/20 11/21/20 23:59 07:59 15:59 Intake Total 1800 600 Output Total 1650 270 Balance 150 330 Post-procedural complaints: none Patient feedback: Patient satisfied with anesthetic care.
--- NOTE | 2020-11-21 10:52 | WPDANLDNPN2 ---
Anes-Prog Note L&D-Neuraxial Date/Time: 11/21/20 10:52 Neuraxial medications: epidural PF morphine Opiod-related complaints: none Patient feedback: Patient satisfied with post-operative pain management.
--- NOTE | 2020-11-21 23:14 | PC.NURSE ---
Ambulated to bathroom, bed zeroed for accurate weight. Weight 68.6 kg.
[2020-11-22 04:45] VITALS: BP 132/87; PULSE 77; RESP 16; TEMP 36.5; O2SAT 99
--- NOTE | 2020-11-22 07:53 | P.PNOB_ITS ---
OB - PN: Subj Subjective Date/time seen: 11/22/20 07:53 Patient comments: no complaints, pain well controlled, incisional pain, tolerating diet and flatus present OB - PN: Obj Data Labs CBC & Chem 7: 11/21/20 05:36 11/18/20 18:03 OB - PN A/P Plan day: 2 Plan: routine care Comments: POD#2 LTCS - no problems, to d/c Time Spent With Patient Time: Total time spent is greater than 50% in coordination of care (as d ocumented) at patient's floor/unit and/or counseling patient: Exam Const: General: comfortable, no acute distress and alert Resp: Effort & Inspection: normal respiratory effort Auscultation: no crackles, no rales and no rhonchi Cardio: Rate: regular rate Heart sounds: no click, no murmurs and no rubs GI: Inspection: non-distended GI Palp: No Tenderness to palpation present (GI) Auscultation: normal bowel sounds Other: Incision - CDI Extrem: General: normal to inspection, no pedal edema and no calf tenderness
--- NOTE | 2020-11-22 07:54 | PM.OBDSVD ---
DS: Admitting Diagnosis Admitting Diagnosis Admitting Diagnosis: term DS: Discharge Diagnosis Discharge Diagnosis (1) delivery delivered: Code(s): O82 - Encounter for delivery without indication Status: Acute OB - DS: Summary OB Procedures : None OB Procedures Intrapartum: OB Procedures: : None Peripartum Data Infant Delivery Method: Section Procedures: Procedures Operation Date: 11/20/20 05:30 Actual Procedures Side Surgeon p Section Taylor Salazar MD Status at Discharge Functional status at discharge: independent ambulation Time Spent with Patient Time attestation: Total time spent providing and/or coordinating discharge services: DS: Data Data Completed and Pending Pending studies at discharge: Pending at discharge 11/20/20 06:16 Surgical [PTH] Routine Discharge Plan Discharge Discharging Clinician: Taylor Salazar Patient Disposition: Home, Self-Care Activity: pelvic rest Diet: regular Discharge Instructions: Education: Mom and Baby Guide Given to: Mother Follow-Up: Call your delivering provider's office for an appointment to be seen in: 1 Week Mom and baby should come to the [facility] for the follow-up appointment. Appointment Date/Time: November 24, 2020 at 11:00 am What to expect at your follow-up visit: Blood Pressure Check Physical Assessment Call [phone] if you are unable to keep your appointment time. BREAST CARE: * Wear a snug supportive bra. * For engorgement discomfort: Bottle Feeding: * May apply ice packs ABDOMINAL INCISION: (if applicable) * Allow incision to air dry * Do NOT use lotions for powders on your incision * When showering, allow soap and water to run over the incision, but do not wash incision PERINEAL CARE: * Until bleeding stops, use your bhargav bottle after urinating * Change your pad frequently throughout the day * No tub baths until seen by your physician - You may shower ACTIVITY: * Rest as much as possible. * Do not exercise or lift anything heavier than your baby (such as laundry or other children.) * Avoid stairs or driving as much as possible. * Do not put anything into the vagina. No douching, tampons, or sexual activity until seen by physician. NOTIFY PHYSICIAN IF YOU HAVE ANY QUESTIONS OR IF ANY OF THE FOLLOWING SYMPTOMS OCCUR: * If your incision becomes red, swollen, or more painful than what you have experienced in the hospital. * If your vaginal bleeding becomes foul smelling. * If your vaginal bleeding becomes more heavy than a period or if your bleeding changes from pink to bright red. However, you may pass an occasional walnut-sized clot once or twice for the first week . * If you experience a sharp, shooting pain in your calves. * If you discover a hard, reddened area on your breast or if you experience flu-like symptoms. DIET: * Eat regular, well-balanced meals. * Drink plenty of fluids daily. Patient Instructions: Antibiotic Form, Caring for Your Baby (DC), Your 's Appearance (DC), (DC) Stand Alone Forms: General Discharge Information Follow-up/Referrals: Taylor Salazar MD [Physician] - Discharge Medications: New hydrocodone-acetaminophen 5-325 mg tablet 1 - 2 tablet PO Q4H PRN (Reason: pain) Qty: 25 RF: 0 Continued PNV cmb#95-ferrous fumarate-FA [] 28 mg iron- 800 mcg Tablet 1 tablet PO DAILY RF: 0 Date of admission: 11/18/20 17:40 Primary Care Provider: PHYSICIAN,DYNAMOTOR REPAIRER Admitting Provider: Taylor Salazar Attending physician on admission: Taylor Salazar Condition: Stable
[2020-11-22 08:00] VITALS: BP 138/94; PULSE 88; RESP 18; TEMP 37.6; O2SAT 99
[2020-11-22 08:45] VITALS: PULSE 88; RESP 18; O2SAT 99
[2020-11-22] MEDS: HYDROcodone/acetaminophen (*CRX) 10-325 MG TABLET 1 TAB PO (08:45)
[2020-11-22] MEDS: DOCUSATE SODIUM 100 MG CAPSULE PO (08:46)
[2020-11-22] MEDS: IBUPROFEN 600 MG TABLET PO (08:46)
[2020-11-24 11:53] VITALS: BP 143/84; PULSE 99; RESP 20; TEMP 36.8; O2SAT 100
== END 2020-11-22 12:15 | disposition home or self-care (01) | DRG 540 ==
LOC: ANHLDR 11-20 07:15 → ANHOB2 11-20 09:03
PROVIDERS: Advanced Practice Midwife; Admitting Provider Obstetrics & Gynecology; Family Provider Pediatrics; Visit Provider Obstetrics & Gynecology
PROC: 10D00Z1 Extraction of Products of Conception, Low, Open Approach (ICD-10-PCS; CPT 59514; principal; 2020-11-20 05:30)
DX: O14.04 Mild to moderate pre-eclampsia, complicating childbirth (principal); Z37.0 Single live birth; Z3A.37 37 weeks gestation of pregnancy; O36.8330 Maternal care for abnormalities of the fetal heart rate or rhythm, third trimester, not applicable or unspecified; O99.344 Other mental disorders complicating childbirth; F41.8 Other specified anxiety disorders; O62.0 Primary inadequate contractions
CPT/HCPCS: 36415; 80053; 84550; 85025; 86592; 86850; 86900; 86901; 88307; A9270; J0131; J0290; J0690; J1885; J2274; J2405; J2590; J2795; J7030; J7120

== ENCOUNTER 2022-01-06 23:42 | Emergency (ER) | payer OTHER, MEDICAID, SELFPAY ==
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
[2022-01-06 23:49] VITALS: BP 129/74; PULSE 102; RESP 16; TEMP 36.7; O2SAT 100
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
[2022-01-07] MEDS: KETOROLAC (*BKC) 60 MG/2 ML VIAL IM (00:42)
== END 2022-01-07 00:46 | disposition home or self-care (01) ==
LOC: ANHED 01-07 00:55
PROVIDERS: Emergency Provider Nurse Practitioner Family
DX: S93.402A Sprain of unspecified ligament of left ankle, initial encounter (principal); V49.40XA Driver injured in collision with unspecified motor vehicles in traffic accident, initial encounter
CPT/HCPCS: 73610; 96372; 99283; J1885

== ENCOUNTER 2022-12-13 17:15 | Emergency (ER) | payer BC, SELFPAY ==
[2022-12-13 17:47] VITALS: BP 120/82; PULSE 91; RESP 16; TEMP 36.8; O2SAT 100
--- NOTE | 2022-12-13 17:47 | ED.URI ---
HPI - URI/Sore Throat General Chief Complaint: Upper Respiratory Infection Stated Complaint: flu like sx Time Seen by Provider: 12/13/22 18:28 Source: patient and RN notes reviewed Mode of arrival: ambulatory Limitations: no limitations History of Present Illness HPI Narrative: 22-year-old female presents concern for 4 day history of cough, fever, chills, body ache, sore throat, general weakness. She reports he blood her workup had flu and strep throat. She reports she has been taking DayQuil, NyQuil, ibuprofen with little relief. MD elicited complaint: cough and sore throat Related Data Allergies Allergy/AdvReac Type Severity Reaction Status Date / Time No Known Allergies Allergy Verified 12/13/22 17:57 Review of Systems Review of Systems: CONSTITUTIONAL: Reports malaise, chills, sweats, or fever. EYES: Denies visual changes, redness, or discharge. ENT: Reports rhinorrhea, congestion, and sore throat. Denies sinus pain, otalgia CARDIOVASCULAR: Denies chest pain, palpitations, or edema. RESPIRATORY: Reports cough. Denies dyspnea. GASTROINTESTINAL: Denies abdominal pain, nausea, vomiting, diarrhea SKIN: Denies rash or itching. MUSCULOSKELETAL: Reports myalgia. NEUROLOGIC: Denies headache. All systems reviewed & are unremarkable except as noted in HPI and below PMFSH Past Medical History Medical History (Updated 12/13/22 @ 18:36 by Rica Moncada NP) Anxiety Depression Surgical History Surgical History History of tonsillectomy [place] teeth removed Family History Family History Grandparent Family history of hypercholesterolemia Social History Social History Smoking status: Never smoker Second hand tobacco smoke exposure: No Alcohol intake: never Substance use: never Gender identity (if verbalized by the patient): Female Sexual Orientation (if Verbalized by the Patient): Straight or Heterosexual Spiritual care concerns: No Comments At time of signature, agree with nursing past medical, surgical, social and family history. There is no relevant family history pertinent to the presenting complaint Exam Narrative: GENERAL: Nontoxic appearing and in no acute distress. HEAD: Normocephalic EYES: PERRLA, conjunctivae clear ENT: Nares clear, turbinates edematous and erythematous, clear discharge. Mucous membranes moist. TM pearly alcaraz with dull light reflex bilaterally; no tragal tenderness. Oropharynx not erythematous without lesions. Tonsils not enlarged and without exudate, no drooling, no hoarseness, no trismus, uvula midline. NECK: Supple. No lymphadenopathy CHEST: Clear to auscultation, breath sounds equal. No wheezing, rhonchi, rales, or stridor. No respiratory distress, speaks in full sentences. HEART: Regular rate and rhythm. No murmur heard. SKIN: Warm, dry, no rash. NEURO: Alert and oriented x3. PSYCH: Normal mood and affect Course Course Emergency Course: Patient is aware of diagnosis, understands and agrees to treatment plan. Anticipatory guidance given. Patient agrees to follow-up as directed and is aware of reasons to seek care at the emergency department. Portions of this record may have been created with voice recognition software Level of Care: Express Care Visit Vital Signs Vital signs: Reviewed. MDM - URI/Sore Throat MDM Narrative Medical decision making narrative: Differential diagnosis considered: Macdonald virus, strep pharyngitis, allergic rhinitis, upper respiratory tract infection, sinusitis, rhinosinusitis, nasopharyngitis. viral pharyngitis, otitis media, otitis externa, pneumonia, bronchitis, viral cough syndrome, viral syndrome, and influenza. Exam findings show no acute concerns or changes; patient is non-toxic appearing and is in no distress. Patient is appropriate for outpatient treatment and
== END 2022-12-13 18:45 | disposition home or self-care (01) ==
PROVIDERS: Emergency Provider Nurse Practitioner
DX: J10.1 Influenza due to other identified influenza virus with other respiratory manifestations (principal); Z20.822 Contact with and (suspected) exposure to COVID-19
CPT/HCPCS: 87081; 87426; 87804; 87880; 99213; C9803; G0463

== ENCOUNTER 2024-06-08 02:38 | Emergency (ER) | payer BC, SELFPAY ==
[2024-06-08 02:39] VITALS: BP 108/71; PULSE 103; RESP 17; TEMP 38.2; O2SAT 100
[2024-06-08] MEDS: ACETAMINOPHEN 500 MG TABLET 1000 MG PO (02:58)
[2024-06-08 03:15] VITALS: O2SAT 99
[2024-06-08 03:32] LABS: Strep Group A RT-PCR NOT DETECTED (Negative)
--- NOTE | 2024-06-08 03:35 | ED.GENADULT ---
HPI - General Adult General Chief complaint: Upper Respiratory Infection Stated complaint: flu symptoms Time Seen by Provider: 06/08/24 02:46 History of Present Illness HPI narrative: Patient 24-year-old female who presents emergency department with chief complaint of flu-like symptomsPatient reports that she is approximately 11 weeks having body aches reports he has not had any Tylenol this evening does report the shuttle bit of a dry cough blood of a sore throat and reports symptoms been ongoing for the last 2 days. The patient is concerned that she may have influenza. Related Data Allergies Allergy/AdvReac Type Severity Reaction Status Date / Time No Known Allergies Allergy Verified 12/13/22 17:57 Review of Systems Review of Systems: A 10 system review of systems was completed on the patient and is negative except for what is stated in the HPI. Nursing and ancillary documentation was reviewed. [facility] Past Medical History Medical History (Updated 06/08/24 @ 03:51 by Anoop Sage MD) Anxiety Depression Surgical History Surgical History History of tonsillectomy [place] teeth removed Family History Family History Grandparent Family history of hypercholesterolemia Social History Social History Smoking status: Never smoker Second hand tobacco smoke exposure: No Alcohol intake: never Substance use: never Gender identity (if verbalized by the patient): Female Sexual Orientation (if Verbalized by the Patient): Straight or Heterosexual Spiritual care concerns: No Exam Narrative: GENERAL: Well-appearing, well-nourished, and in no acute distress. HEAD: Normocephalic, atraumatic. EYES: PERRLA and EOMI. ENT: Nares clear, no rhinorrhea or epistaxis. Mucous membranes moist. NECK: Supple. CHEST: Clear to auscultation. No respiratory distress. HEART: Regular rate and rhythm. No murmur heard. Normal peripheral pulses. ABDOMEN: Soft, nontender, nondistended, normal active bowel sounds. EXTREMITIES: Normal range of motion. No edema. SKIN: Warm, dry, no rash. NEURO: No focal deficits. Alert and oriented x3. PSYCH: Normal mood and affect. Course Vital Signs Vital signs: Vital Signs Temperature 38.2 C H 06/08/24 02:39 Pulse Rate 103 H 06/08/24 02:39 Respiratory Rate 17 06/08/24 02:39 Blood Pressure 108/71 06/08/24 02:39 Pulse Oximetry 100 06/08/24 02:39 Oxygen Delivery Room Air 06/08/24 02:39 Temperature 38.2 C H 06/08/24 02:39 Pulse Rate 103 H 06/08/24 02:39 Respiratory Rate 17 06/08/24 02:39 Blood Pressure 108/71 06/08/24 02:39 Pulse Oximetry 99 06/08/24 03:15 Oxygen Delivery Room Air 06/08/24 03:15 Medical Decision Making MDM Narrative Medical decision making narrative: Differential diagnosis includes strep pharyngitis, COVID flu, RSV. Strep test was negative Vital Signs Vital Signs: Vital Signs Temperature 38.2 C H 06/08/24 02:39 Pulse Rate 103 H 06/08/24 02:39 Respiratory Rate 17 06/08/24 02:39 Blood Pressure 108/71 06/08/24 02:39 Pulse Oximetry 100 06/08/24 02:39 Oxygen Delivery Room Air 06/08/24 02:39 Temperature 38.2 C H 06/08/24 02:39 Pulse Rate 103 H 06/08/24 02:39 Respiratory Rate 17 06/08/24 02:39 Blood Pressure 108/71 06/08/24 02:39 Pulse Oximetry 99 06/08/24 03:15 Oxygen Delivery Room Air 06/08/24 03:15 Lab Data Labs: Lab Results 06/08/24 Range/Units 03:00 Influenza A (RT-PCR) Negative (Negative) Influenza B (RT-PCR) Negative (Negative) RSV (RT-PCR) Negative (Negative) SARS-CoV-2 RNA (RT-PCR) Positive A (Negative) Group A Strep (PCR) Not detected (Negative) Discharge Plan Discharge Clinical Impression: COVID-19 Patient
[2024-06-08 03:44] LABS: Influenza A QL RT-PCR Negative (Negative); Influenza B QL RT-PCR Negative (Negative); RSV RNA, RT-PCR Negative (Negative); SARS-CoV-2 RNA PCR Positive (Negative)
== END 2024-06-08 04:05 | disposition home or self-care (01) ==
PROVIDERS: Emergency Provider Emergency Medicine
DX: O98.511 Other viral diseases complicating pregnancy, first trimester (principal); U07.1 COVID-19; Z3A.11 11 weeks gestation of pregnancy
CPT/HCPCS: 87637; 87651; 99283; A9270